=== PATIENT | female | born 1970 | race Hispanic/Latino ===

== ENCOUNTER 2018-08-07 20:07 | Inpatient (IN) | payer SELFPAY ==
[~2018-08-07] VITALS: Ht 157.5 cm; Wt 92.4 kg
[2018-08-07] MEDS ORDERED: SODIUM CHLORIDE 0.9% 1000ML 1,000 ML IV ONE (20:46)
[2018-08-07 21:13] LABS: APPEARANCE,URINE Cloudy (CLEAR); BILIRUBIN,URINE Negative (NEGATIVE); COLOR,URINE Yellow (YELLOW); GLUCOSE, URINE (UA) TRACE mg/dL (NEGATIVE); KETONES,URINE Negative (NEGATIVE); LEUKOCYTE ESTERASE ,URINE Trace (NEGATIVE); NITRATE,URINE Negative (NEGATIVE); OCCULT BLOOD,URINE Small (NEGATIVE); PH,URINE 5.5 (5.0-8.0); PROTEIN,URINE 300 (NEGATIVE); UROBILINOGEN,URINE 0.2 mg/dL (0.2-1.0)
[2018-08-07 21:23] LABS: BACTERIA,URINE None Seen /HPF (None Seen); MUCUS,URINE Few LPF (None Seen); RBC,URINE 0-1 /HPF (0-1)
[2018-08-07 21:32] LABS: BASOPHILS % (AUTO) 0.4 % (0.0-5.0); EOSINOPHILS % (AUTO) 0.2 % (0.0-8.0); HEMATOCRIT 28.1 % (36-48); LYMPHOCYTES % (AUTO) 5.6 % (21.0-51.0); MEAN CORPUSCULAR HEMOGLOBIN 26.7 pg (27.0-33.0); MEAN CORPUSCULAR HGB CONC 31.6 g/dL (32.0-36.0); MEAN CORPUSCULAR VOLUME 84.5 fL (79-99); MONOCYTES % (AUTO) 2.5 % (3.0-13.0); NEUTROPHILS % (AUTO) 91.3 % (40.0-77.0); PLATELET COUNT (AUTO) 395 K/uL (130-400); RED BLOOD CELL COUNT(AUTO) 3.33 MIL/uL (4.00-5.50); RED CELL DISTRIBUTION WIDTH 16.1 % (11.0-15.5); WHITE BLOOD COUNT (AUTO) 14.2 K/uL (4.8-10.8)
[2018-08-07 21:46] LABS: CREATININE 2.2 mg/dL (0.5-1.5); POTASSIUM 4.5 mmol/L (3.5-5.1)
[2018-08-07 21:47] LABS: INR 0.89 (0.85-1.15); PARTIAL THROMBOPLASTIN TIME 24.7 SEC (26.3-35.5); PROTHROMBIN TIME 9.4 SEC (9.6-11.6)
[2018-08-07 21:50] LABS: ALBUMIN 2.6 g/dL (3.5-5.0); BILIRUBIN,TOTAL 0.2 mg/dL (0.2-1.0); TOTAL PROTEIN, SERUM 7.9 g/dL (6.0-8.3)
[2018-08-07] MEDS ORDERED: LEVOFLOXACIN 500 MG TABLET ONE (22:24)
[2018-08-07] MEDS ORDERED: FUROSEMIDE 10 MG/ML 2ML VIAL ONE (22:24)
[2018-08-07] MEDS ORDERED: NITROGLYCERIN 1GM/1 INCH PACKET TD ONE (22:24)
[2018-08-07 22:48] LABS: RETICULOCYTE % (AUTO) 1.35 % (0.42-2.23)
[2018-08-07] MEDS ORDERED: DEXTROSE 50%-WATER 50 ML DISP.SYRIN IV PRN (23:00)
[2018-08-07] MEDS ORDERED: GLUCAGON 1MG KIT 1 MG ML IM PRN (23:00)
[2018-08-07 23:15] LABS: HEMOGLOBIN A1C 6.8 % (4.0-6.0)
[2018-08-08] VITALS (7 sets, daily range): BP systolic 132–192; BP diastolic 67–93
--- NOTE | 2018-08-08 00:45 | NUR ---
Admission Assessment Received pt from ED with family around, DX: UTI, Hypoglycemia (BS 29) per stretcher, routine admission assessment done, plan of care discuss that she is pending 2 d Echo with a cardiology consult, Dr. Smith. Pt admits she does not see any physicians, took it to herself managing her DM by baying from [place] Glyburide 10mg daily, Januvia 100mg daily & Metformin 1000mg daily. Pt stated she takes all this medications without monitoring her blood sugar. Pt confirm awareness this is a close call for her & that she will seek advise from a physician since claimed DM is now affecting her vision & numbness to her bilateral lower extremity. Pt was also updated with all the lab & radiologic outcomes with all concern questions addressed.
[2018-08-08] MEDS ORDERED: SITA100T12 PO (06:06)
[2018-08-08] MEDS ORDERED: METF-446 PO (06:06)
[2018-08-08] MEDS ORDERED: GLYB5TAB8 PO (06:06)
[2018-08-08 06:34] LABS: BASOPHILS % (AUTO) 0.7 % (0.0-5.0); EOSINOPHILS % (AUTO) 0.2 % (0.0-8.0); HEMATOCRIT 23.1 % (36-48); LYMPHOCYTES % (AUTO) 8.6 % (21.0-51.0); MEAN CORPUSCULAR HEMOGLOBIN 27.7 pg (27.0-33.0); MEAN CORPUSCULAR HGB CONC 33.1 g/dL (32.0-36.0); MEAN CORPUSCULAR VOLUME 83.7 fL (79-99); MONOCYTES % (AUTO) 4.2 % (3.0-13.0); NEUTROPHILS % (AUTO) 86.3 % (40.0-77.0); PLATELET COUNT (AUTO) 385 K/uL (130-400); RED BLOOD CELL COUNT(AUTO) 2.76 MIL/uL (4.00-5.50); RED CELL DISTRIBUTION WIDTH 16.2 % (11.0-15.5); WHITE BLOOD COUNT (AUTO) 12.8 K/uL (4.8-10.8)
[2018-08-08 06:51] LABS: CREATININE 2.3 mg/dL (0.5-1.5)
[2018-08-08] MEDS ORDERED: INSULIN HUMULIN R 100 UNIT/ML 3ML SQ SCH (07:30)
[2018-08-08] MEDS ORDERED: ONDANSETRON HCL MDV 20ML 2 MG/ML VIAL IVP PRN (09:00)
[2018-08-08] MEDS: METOPROLOL TARTRATE 25 MG TAB PO SCH ×2 (09:25→20:52)
[2018-08-08] MEDS: AMLODIPINE BESYLATE 5 MG TAB PO SCH (09:25)
[2018-08-08] MEDS: PANTOPRAZOLE SODIUM 40 MG TABLET.DR PO SCH (09:25)
[2018-08-08] MEDS: LEVOFLOXACIN 250 MG/D5W 50ML 50 ML IV SCH (09:25)
[2018-08-08] MEDS ORDERED: EPOETIN ALFA 10,000 UNIT/ML VIAL SQ SCH (09:30)
--- NOTE | 2018-08-08 09:30 | NUR ---
HOSPITALIST MECHANICAL ENGINEERING TECHNOLOGIST ROUNDED ON THE PATIENT AND SHE WAS MADE AWARE OF THE PATIENT'S CURRENT STATUS WELL THE CURRENT LISTED HOME MEDS SELF-MEDICATED AND THEY WERE NOT PRESCRIBED. MECHANICAL ENGINEERING TECHNOLOGIST ORDERS TO PUT THEM ON HOLD.
[2018-08-08] MEDS: ENOXAPARIN SODIUM 40 MG/0.4 ML SYRINGE SQ SCH (09:31)
[2018-08-08] MEDS: METOCLOPRAMIDE 5 MG TABLET PO SCH ×2 (10:53→16:30)
--- NOTE | 2018-08-08 12:25 | NUR ---
HYPOGLYCEMIC EPISODE WITH SYMPTOM WAS RECORDED. D50% WAS ADMINISTERED SLOWLY, AND STAT RANDOM GLUCOSE WAS ORDERED PER PROTOCOL. HOSPITALIST WAS ALREADY AWARE OF HYPOGLYCEMIA, HYPOGLYCEMIC AGENTS WERE PLACED ON HOLD.
[2018-08-08] MEDS: IPRATROPIUM/ALBUTEROL SULFATE 3 ML SOLUTION IH SCH ×2 (13:27→18:02)
--- NOTE | 2018-08-08 16:54 | NUR ---
INITIAL: Met with pt and family this afternoon to discuss dcp. Pt states that prior to admission she was living w her parents and dtr. Pt is independent w ambulation and ADLs and is able to drive where needed. 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 Pt states that she does not see a PCP and purchases medications in [place]. She states that ~5yrs ago she was going to [facility] for healthcare services and whatever meds she was prescribed at that time she kept purchasing from [place]. she does not monitor her Blood sugar levels at home. Provided pt w low income packet, states will look into registering @ [facility] or the [place]. Discussed 4$ prescription program avail @ [facility] or [facility]. Pt states she feels safe and comfortable to [place] at [place]. Will continue to follow and wait for Md recommendations. Addendum: 08/08/18 at 1659 by RENATO GASPAR CM Amended: Links added.
[2018-08-08] MEDS: FERROUS SULFATE 325 MG TABLET.DR PO SCH (20:52)
[2018-08-09] MEDS: IPRATROPIUM/ALBUTEROL SULFATE 3 ML SOLUTION IH SCH ×5 (00:12→23:25)
[2018-08-09 03:25] VITALS: BP 149/79
[2018-08-09] MEDS: METOCLOPRAMIDE 5 MG TABLET PO SCH ×3 (06:22→16:51)
[2018-08-09 06:54] LABS: HEMATOCRIT 22.8 % (36-48); MEAN CORPUSCULAR HEMOGLOBIN 27.5 pg (27.0-33.0); MEAN CORPUSCULAR HGB CONC 32.5 g/dL (32.0-36.0); MEAN CORPUSCULAR VOLUME 84.4 fL (79-99); PLATELET COUNT (AUTO) 347 K/uL (130-400); RED CELL DISTRIBUTION WIDTH 16.3 % (11.0-15.5); WHITE BLOOD COUNT (AUTO) 10.3 K/uL (4.8-10.8)
[2018-08-09 07:30] VITALS: BP 165/80
[2018-08-09] MEDS ORDERED: LACTULOSE 20 GM/30 ML UDCUP PO PRN (07:45)
[2018-08-09] MEDS ORDERED: LACTULOSE 20 GM/30 ML UDCUP PO SCH (09:00)
[2018-08-09] MEDS: FERROUS SULFATE 325 MG TABLET.DR PO SCH ×2 (09:39→21:08)
[2018-08-09] MEDS: AMLODIPINE BESYLATE 5 MG TAB PO SCH (09:39)
[2018-08-09] MEDS: PANTOPRAZOLE SODIUM 40 MG TABLET.DR PO SCH (09:39)
[2018-08-09] MEDS: METOPROLOL TARTRATE 25 MG TAB PO SCH ×2 (09:40→21:08)
[2018-08-09] MEDS: LEVOFLOXACIN 250 MG/D5W 50ML 50 ML IV SCH (09:40)
[2018-08-09] MEDS: ENOXAPARIN SODIUM 40 MG/0.4 ML SYRINGE SQ SCH (09:41)
[2018-08-09] MEDS ORDERED: GUAIFENESIN-DM 200/20 MG 10 ML PO PRN (09:45)
[2018-08-09 10:09] LABS: ALBUMIN 2.2 g/dL (3.5-5.0); BILIRUBIN,TOTAL 0.2 mg/dL (0.2-1.0); CREATININE 2.4 mg/dL (0.5-1.5); POTASSIUM 5.2 mmol/L (3.5-5.1); TOTAL PROTEIN, SERUM 6.9 g/dL (6.0-8.3)
[2018-08-09 12:00] VITALS: BP 149/83
[2018-08-09 13:51] LABS: % IRON SATURATION 12.1 % (22-44)
[2018-08-09 16:00] VITALS: BP 144/86
[2018-08-09 17:25] LABS: APPEARANCE,URINE Clear (CLEAR); BILIRUBIN,URINE Negative (NEGATIVE); COLOR,URINE Yellow (YELLOW); GLUCOSE, URINE (UA) 500 mg/dL (NEGATIVE); KETONES,URINE Negative (NEGATIVE); LEUKOCYTE ESTERASE ,URINE Negative (NEGATIVE); NITRATE,URINE Negative (NEGATIVE); OCCULT BLOOD,URINE Trace (NEGATIVE); PH,URINE 5.5 (5.0-8.0); PROTEIN,URINE >=1000 (NEGATIVE)
[2018-08-09 17:41] LABS: BACTERIA,URINE Few /HPF (None Seen); SQUAMOUS EPITHELIAL CELL,UR Few /HPF (0-2); YEAST,URINE BUDDING Few /HPF (None Seen)
[2018-08-09 19:00] VITALS: BP 187/86
[2018-08-09 23:00] VITALS: BP 140/72
[2018-08-10 03:00] VITALS: BP 147/89
[2018-08-10 05:06] LABS: BASOPHILS % (AUTO) 0.9 % (0.0-5.0); EOSINOPHILS % (AUTO) 2.2 % (0.0-8.0); HEMATOCRIT 23.3 % (36-48); LYMPHOCYTES % (AUTO) 20.3 % (21.0-51.0); MEAN CORPUSCULAR HEMOGLOBIN 27.9 pg (27.0-33.0); MEAN CORPUSCULAR HGB CONC 32.9 g/dL (32.0-36.0); MEAN CORPUSCULAR VOLUME 84.8 fL (79-99); MONOCYTES % (AUTO) 6.7 % (3.0-13.0); NEUTROPHILS % (AUTO) 69.9 % (40.0-77.0); PLATELET COUNT (AUTO) 350 K/uL (130-400); RED BLOOD CELL COUNT(AUTO) 2.74 MIL/uL (4.00-5.50); RED CELL DISTRIBUTION WIDTH 16.8 % (11.0-15.5); WHITE BLOOD COUNT (AUTO) 9.9 K/uL (4.8-10.8)
[2018-08-10 05:17] LABS: CREATININE 2.3 mg/dL (0.5-1.5); MAGNESIUM 2.2 mg/dL (1.80-2.40); PHOSPHORUS 4.7 mg/dL (2.5-4.9); POTASSIUM 5.2 mmol/L (3.5-5.1); URIC ACID 5.3 mg/dL (2.6-7.2)
[2018-08-10] MEDS: IPRATROPIUM/ALBUTEROL SULFATE 3 ML SOLUTION IH SCH ×3 (06:42→18:36)
[2018-08-10] MEDS: METOCLOPRAMIDE 5 MG TABLET PO SCH ×3 (06:46→16:28)
[2018-08-10 08:00] VITALS: BP 152/70
[2018-08-10] MEDS ORDERED: LEVO500T2 PO (08:57)
[2018-08-10] MEDS ORDERED: LEVOFLOXACIN 500 MG TABLET PO SCH (09:00)
[2018-08-10] MEDS ORDERED: FOLIC ACID/VITAMIN B COMP W-C 1 MG CAPSULE PO SCH (09:00)
[2018-08-10] MEDS ORDERED: SODIUM POLYSTYRENE SULFONATE 15 GM/60 ML ML PO SCH (09:00)
[2018-08-10] MEDS: FERROUS SULFATE 325 MG TABLET.DR PO SCH (09:26)
[2018-08-10] MEDS: PANTOPRAZOLE SODIUM 40 MG TABLET.DR PO SCH (09:26)
[2018-08-10] MEDS: AMLODIPINE BESYLATE 5 MG TAB PO SCH (09:27)
[2018-08-10] MEDS: METOPROLOL TARTRATE 25 MG TAB PO SCH (09:27)
[2018-08-10] MEDS: ENOXAPARIN SODIUM 40 MG/0.4 ML SYRINGE SQ SCH (09:30)
[2018-08-10 12:20] VITALS: BP 189/98
[2018-08-10 16:00] VITALS: BP 178/92
--- NOTE | 2018-08-10 18:40 | NUR ---
DISCHARGE INSTRUCTIONS WERE EXPLAINED TO THE PATIENT AND SHE WAS ENCOURAGED TO KEEP THE FOLLOW-UP APPOINTMENT WITH TRAFFIC OR SYSTEM DISPATCHER AND TO SCHEDULE AND APPOINTMENT TO ESTABLISH PCP RELATIONSHIP FOR DISEASE MANAGEMENT AND SHE VERBALIZED UNDERSTANDING. IV ACCESS WAS REMOVED WITHOUT COMPLICATION. SHE IS READY TO LEAVE WHENEVER THE FAMILY BRINGS HER CLOTHING.
[2018-08-11] MEDS ORDERED: FOLIC ACID/VITAMIN B COMP W-C 1 MG CAPSULE PO SCH (09:00)
== END 2018-08-10 21:00 | disposition home or self-care (01) | DRG 637 ==
LOC: EDH 20:07 → EDHIP 20:08 → 3DH 23:34
PROVIDERS: ADMIT Hospitalist; ATTEND Hospitalist
DX: E11.649 Type 2 diabetes mellitus with hypoglycemia without coma (principal); J18.9 Pneumonia, unspecified organism; N39.0 Urinary tract infection, site not specified; E87.1 Hypo-osmolality and hyponatremia; I50.30 Unspecified diastolic (congestive) heart failure; N17.9 Acute kidney failure, unspecified; D64.9 Anemia, unspecified; E11.21 Type 2 diabetes mellitus with diabetic nephropathy; E11.51 Type 2 diabetes mellitus with diabetic peripheral angiopathy without gangrene; I11.0 Hypertensive heart disease with heart failure; E87.5 Hyperkalemia; I34.0 Nonrheumatic mitral (valve) insufficiency; Z79.84 Long term (current) use of oral hypoglycemic drugs; Z91.14 Patient's other noncompliance with medication regimen
CPT/HCPCS: 36415; 70450; 71045; 80048; 80053; 81001; 82550; 82728; 82947; 82948; 83036; 83540; 83550; 83735; 83880; 84100; 84132; 84443; 84484; 84550; 85025; 85027; 85045; 85610; 85730; 87088; 93005; 93306; 94640; 94664; G0378; J0885; J1650; J1940; J1956; J7030; J7070